=== PATIENT | female | born 1940 | race Caucasian/White ===

== ENCOUNTER 2016-09-25 15:34 | Inpatient (IN) | payer MEDICARE, OTHER ==
[2016-09-25 16:19] LABS: CHLORIDE,CL 98 mEq/L (98-106)
[2016-09-25 16:26] LABS: SODIUM,NA 139 mEq/L (136-145)
--- NOTE | 2016-09-25 16:30 | EDM.PDOC ---
ED HPI GENERAL MEDICAL PROBLEM - General Stated Complaint: PASSED OUT AND HIT HEAD Social & Family History - Tobacco Use Smoking Status *Q: Never Smoker Second Hand Smoke Exposure: No Course - Vital Signs Last Recorded V/S: Last Vital Signs Temp 98.4 F 09/25/16 16:00 Pulse 38 L 09/25/16 16:00 Resp 20 09/25/16 16:00 BP 151/60 H 09/25/16 16:00 Pulse Ox 98 09/25/16 16:00 - Orders/Labs/Meds Orders: Active Orders 24 hr Category Date Time Status Head wo Cont [CT] Stat Exams 09/25/16 15:49 Ordered C-REACTIVE PROTEIN [CHEM] Stat Lab 09/25/16 15:49 Ordered CBC WITH AUTO DIFF [HEME] Stat Lab 09/25/16 15:49 Ordered COMPREHENSIVE METABOLIC PN,CMP [CHEM] Stat Lab 09/25/16 15:49 Ordered CREATINE KINASE,CK [CHEM] Stat Lab 09/25/16 15:49 Ordered TROPONIN I [CHEM] Stat Lab 09/25/16 15:49 Ordered UA W/MICROSCOPIC [URIN] Stat Lab 09/25/16 15:49 Uncollected - My Orders Last 24 Hours: My Active Orders 09/25/16 15:49 Head wo Cont [CT] Stat C-REACTIVE PROTEIN [CHEM] Stat CBC WITH AUTO DIFF [HEME] Stat COMPREHENSIVE METABOLIC PN,CMP [CHEM] Stat CREATINE KINASE,CK [CHEM] Stat TROPONIN I [CHEM] Stat UA W/MICROSCOPIC [URIN] Stat - Assessment/Plan Last 24 Hours: My Active Orders 09/25/16 15:49 Head wo Cont [CT] Stat C-REACTIVE PROTEIN [CHEM] Stat CBC WITH AUTO DIFF [HEME] Stat COMPREHENSIVE METABOLIC PN,CMP [CHEM] Stat CREATINE KINASE,CK [CHEM] Stat TROPONIN I [CHEM] Stat UA W/MICROSCOPIC [URIN] Stat
[2016-09-25] MEDS ORDERED: Potassium Chloride 40 MEQ in Premix Bag 1 BAG IV ONE ×3 (16:37→21:45)
--- NOTE | 2016-09-25 17:07 | EDM.PDOC ---
ED HPI GENERAL MEDICAL PROBLEM - General Chief Complaint: Syncope Stated Complaint: PASSED OUT AND HIT HEAD Time Seen by Provider: 09/25/16 16:25 Source of Information: Reports: Patient History Limitations: Reports: No Limitations - History of Present Illness INITIAL COMMENTS - FREE TEXT/NARRATIVE: Arlin is a 75 yo female who presents to the ER with complaints of dizziness and recent syncopal episode. Family is present and Arlin arrived ambulatory. Family states about 45 minutes before arrival she became very lightheaded and had a 2-3 minute syncopal episode. She was at her granddaughter's house. She states she continues to feel dizzy. Denies any chest pain or palpitations in her chest. Her is present and states this has happened one other time recently while she was sitting in her chair watching TV at home. She admits she is under a lot of stress lately d/t preparing for moving. Reviewed patient's chart with past cardiac history. She saw Dr. Raza back in May of 2015. She has an extensive cardiac history of tachycardia, possible SVT, status post ablation in 2006. Hx of atrial fibrillation on warfarin and amiodarone. CAD, status post stent to LAD in 2009. Hypertension, which she takes Losartan, HCTZ and FUrosemide (peripheral edema). She also has history of dyslipidemia, which she is not taking any statin therapy. She is also on KCl 20 meq daily for history of hypokalemia. Onset: Today Location: Reports: Head Context: Reports: Activity Associated Symptoms: Reports: Headaches, Loss of Appetite, Malaise, Nausea/ Vomiting (nauseated, no vomiting), Syncope, Weakness. Denies: Chest Pain, Cough , Fever/Chills, Seizure, Shortness of Breath - Related Data Allergies Allergy/AdvReac Type Severity Reaction Status Date / Time codeine Allergy Pain Verified 09/25/16 17:01 duloxetine [From Cymbalta] Allergy Headache Verified 09/25/16 17:03 morphine Allergy Pain Verified 09/25/16 17:03 Morpholine Analogues Allergy Pain Verified 09/25/16 17:03 Home Meds: Home Meds ALPRAZolam [Xanax] 0.5 mg PO DAILY PRN 09/25/16 [History] Amiodarone HCl [Pacerone] 200 mg PO DAILY 09/25/16 [History] Aspirin [Halfprin] 81 mg PO DAILY 09/25/16 [History] Furosemide [Lasix] 40 mg PO DAILY 09/25/16 [History] Hydrochlorothiazide 25 mg PO DAILY 09/25/16 [History] Losartan Potassium [Cozaar] 50 mg PO DAILY 09/25/16 [History] Multivitamin [Multivitamins] 1 tab PO DAILY 09/25/16 [History] Potassium Chloride [Klor-Con M20] 20 meq PO DAILY 09/25/16 [History] Warfarin [Coumadin] 1 mg PO DAILY 09/25/16 [History] Zolpidem Tartrate 10 mg PO BEDTIME 09/25/16 [History] Past Medical History Cardiovascular History: Reports: Afib, Arrhythmia, CAD, High Cholesterol, Hypertension, Stents, Syncope Neurological History: Reports: Migraines Psychiatric History: Reports: Anxiety Oncologic (Cancer) History: Reports: Malignant Melanoma - Past Surgical History HEENT Surgical History: Reports: Tonsillectomy Cardiovascular Surgical History: Reports: Coronary Artery Stent GI Surgical History: Reports: Appendectomy, Cholecystectomy Female Surgical History: Reports: Breast Biopsy, Section, Hysterectomy Other Musculoskeletal Surgeries/Procedures:: Leg surgery Social & Family History - Tobacco Use Smoking Status *Q: Never Smoker Second Hand Smoke Exposure: No - Alcohol Use Alcohol Use History: No - Living Situation & Occupation Living situation: Reports: Occupation: Retired ED ROS GENERAL - Review of Systems Review Of Systems: ROS reveals no pertinent complaints other than HPI. Constitutional: Reports: Weakness, Fatigue HEENT: Reports: No Symptoms Cardiovascular: Reports: Lightheadedness, Syncope. Denies: Chest Pain, Dyspnea on Exertion, Orthopnea, Palpitations GI/Abdominal: Reports: Decreased Appetite. Denies: Abdominal Pain : Reports: No Symptoms Musculoskeletal: Reports: No Symptoms Skin: Reports: No Symptoms Neurological: Reports: Dizziness, Headache, Syncope - Physical Exam Exam: See Below Exam Limited By: No Limitations General Appearance: Alert, No Apparent Distress, Anxious Eye Exam: Bilateral Eye: EOMI, PERRL Ears: Normal External Exam, Normal Canal, Hearing Grossly Normal, Normal TMs Nose: Normal Inspection, Normal Mucosa, No Blood Throat/Mouth: Normal Inspection, Normal Lips, Normal Teeth, Normal Gums, Normal Oropharynx, Normal Voice, No Airway Compromise Head Exam: Scalp Abrasions (right parietal) Neck: Normal Inspection, Supple, Non-Tender, Full Range of Motion Respiratory/Chest: No Respiratory Distress, Lungs Clear, Normal Breath Sounds, No Accessory Muscle Use Cardiovascular: Bradycardia, Systolic Murmur, Other (PVC's) GI/Abdominal: Normal Bowel Sounds, Soft, Non-Tender, No Organomegaly, No Distention, No Mass Neuro Exam (Abbreviated): Alert, Oriented, Normal Cognition, No Motor/Sensory Deficits Extremities: Normal Inspection, No Pedal Edema, Normal Capillary Refill Psychiatric: Anxious Skin Exam: Warm, Dry, Intact, Normal Color, No Rash EKG INTERPRETATION EKG Date: 09/25/16 Rhythm: other (frequent PVC's.) Rate (beats/min): 68 ST-T: depressed (inferolateral leads) Comparison: change from previous EKG Course - Vital Signs Last Recorded V/S: Last Vital Signs Temp 98.4 F 09/25/16 16:00 Pulse 38 L 09/25/16 16:00 Resp 20 09/25/16 16:00 BP 151/60 H 09/25/16 16:00 Pulse Ox 98 09/25/16 16:00 - Orders/Labs/Meds Orders: Active Orders 24 hr Category Date Time Status Patient Status Manage Transfer [TRANSFER] Routine ADT 09/25/16 17:13 Ordered Head wo Cont [CT] Stat Exams 09/25/16 15:49 Taken Resuscitation Status Routine Resus Stat 09/25/16 17:14 Ordered Medication Orders Potassium Chloride 40 meq/ (Premix) 100 mls @ 25 mls/hr IV ONETIME ONE Stop: 09/25/16 21:44 Sodium Chloride (Normal Saline) 250 mls @ 62.5 mls/hr IV ONETIME ONE Stop: 09/25/16 21:44 Potassium Chloride 40 meq/ (Premix) 100 mls @ 10 mls/hr IV ONETIME ONE Stop: 09/26/16 07:44 Sodium Chloride (Normal Saline) 500 mls @ 50 mls/hr IV ONETIME ONE Stop: 09/26/16 07:44 Labs: Laboratory Tests 09/25/16 09/25/16 09/25/16 Range/Units 15:49 16:00 16:27 WBC 8.6 (5.0-10.0) 10^3/uL RBC 4.29 (4.00-5.50) 10^6/uL Hgb 13.8 (12.0-16.0) g/dL Hct 41.6 (37.0-47.0) % MCV 97.0 H (82.0-94.0) fL MCH 32.2 H (27.0-32.0) pg MCHC 33.2 (33.0-38.0) g/dL RDW Coeff of Stephanie 13.1 (11.0-15.0) % Plt Count 282 (150-400) 10^3/uL Neut % (Auto) 62.4 (35-85) % Lymph % (Auto) 29.7 (10-55) % [place] % (Auto) 7.3 (0-16) % Eos % (Auto) 0.4 (0-5) % Baso % (Auto) 0.2 (0-3) % Neut # (Auto) 5.34 (1.80-7.00) 10^3/uL Lymph # (Auto) 2.54 (1.00-4.80) 10^3/uL [place] # (Auto) 0.62 (0.00-0.80) 10^3/uL Eos # (Auto) 0.03 (0.00-0.45) 10^3/uL Baso # (Auto) 0.02 10^3/uL PT (9.7-12.3) SEC INR (0.92-1.18) Sodium 139 (136-145) mEq/L Potassium 2.6 L* D (3.5-5.0) mEq/L Chloride 98 (98-106) mEq/L Carbon Dioxide 30 (21-32) mmol/L BUN 39 H D (7-18) mg/dL Creatinine 2.2 H D (0.6-1.0) mg/dL Est Cr Clr Drug Dosing TNP Estimated GFR (MDRD) 22 L (>=60) mL/min Glucose 135 H D (75-99) mg/dL Calcium 9.4 (8.4-10.1) mg/dL Magnesium (1.8-2.4) mg/dL Total Bilirubin 0.6 (0.0-1.0) mg/dL AST 24 (15-37) U/L ALT 25 (12-78) U/L Alkaline Phosphatase 99 (46-116) U/L Creatine Kinase 172 (21-215) U/L Troponin I < 0.017 (0.00-0.06) ng/mL C-Reactive Protein < 0.2 L (0.2-0.8) mg/dL Total Protein 8.4 H (6.4-8.2) g/dL Albumin 4.4 (3.4-5.0) g/dL Urine Color Yellow (YELLOW) Urine Appearance Clear (CLEAR) Urine pH 7.0 (4.5-8.0) Ur Specific [place] 1.008 (1.003-1.020) Urine Protein Negative (NEGATIVE) mg/dL Urine Glucose (UA) Negative (NEGATIVE) mg/dL Urine Ketones Negative (NEGATIVE) mg/dL Urine Occult Blood Negative (NEGATIVE) Urine Nitrite Negative (NEGATIVE) Urine Bilirubin Negative (NEGATIVE) Urine Urobilinogen 0.2 (0.2-1.0) EU/dL Ur Leukocyte Esterase Trace H (NEGATIVE) Urine RBC Not seen (0-5) /HPF Urine WBC 0-5 (0-5) /HPF Ur Squamous Epith Cells Occasional H (NOT SEEN) /HPF 09/25/16 09/25/16 Range/Units 16:40 17:10 WBC (5.0-10.0) 10^3/uL RBC (4.00-5.50) 10^6/uL Hgb (12.0-16.0) g/dL Hct (37.0-47.0) % MCV (82.0-94.0) fL MCH (27.0-32.0) pg MCHC (33.0-38.0) g/dL RDW Coeff of Stephanie (11.0-15.0) % Plt Count (150-400) 10^3/uL Neut % (Auto) (35-85) % Lymph % (Auto) (10-55) % [place] % (Auto) (0-16) % Eos % (Auto) (0-5) % Baso % (Auto) (0-3) % Neut # (Auto) (1.80-7.00) 10^3/uL Lymph # (Auto) (1.00-4.80) 10^3/uL [place] # (Auto) (0.00-0.80) 10^3/uL Eos # (Auto) (0.00-0.45) 10^3/uL Baso # (Auto) 10^3/uL PT 19.3 H (9.7-12.3) SEC INR 1.76 H (0.92-1.18) Sodium (136-145) mEq/L Potassium (3.5-5.0) mEq/L Chloride (98-106) mEq/L Carbon Dioxide (21-32) mmol/L BUN (7-18) mg/dL Creatinine (0.6-1.0) mg/dL Est Cr Clr Drug Dosing Estimated GFR (MDRD) (>=60) mL/min Glucose (75-99) mg/dL Calcium (8.4-10.1) mg/dL Magnesium 2.3 (1.8-2.4) mg/dL Total Bilirubin (0.0-1.0) mg/dL AST (15-37) U/L ALT (12-78) U/L Alkaline Phosphatase (46-116) U/L Creatine Kinase (21-215) U/L Troponin I (0.00-0.06) ng/mL C-Reactive Protein (0.2-0.8) mg/dL Total Protein (6.4-8.2) g/dL Albumin (3.4-5.0) g/dL Urine Color (YELLOW) Urine Appearance (CLEAR) Urine pH (4.5-8.0) Ur Specific [place] (1.003-1.020) Urine Protein (NEGATIVE) mg/dL Urine Glucose (UA) (NEGATIVE) mg/dL Urine Ketones (NEGATIVE) mg/dL Urine Occult Blood (NEGATIVE) Urine Nitrite (NEGATIVE) Urine Bilirubin (NEGATIVE) Urine Urobilinogen (0.2-1.0) EU/dL Ur Leukocyte Esterase (NEGATIVE) Urine RBC (0-5) /HPF Urine WBC (0-5) /HPF Ur Squamous Epith Cells (NOT SEEN) /HPF Meds: Medications Generic Name Dose Route Start Last Admin Trade Name Freq PRN Reason Stop Dose Admin Potassium Chloride 40 meq/ 100 mls @ 25 mls/hr 09/25/16 17:45 Premix IV 09/25/16 21:44 ONETIME ONE Sodium Chloride 250 mls @ 62.5 mls/hr 09/25/16 17:45 Normal Saline IV 09/25/16 21:44 ONETIME ONE Potassium Chloride 40 meq/ 100 mls @ 10 mls/hr 09/25/16 21:45 Premix IV 09/26/16 07:44 ONETIME ONE Sodium Chloride 500 mls @ 50 mls/hr 09/25/16 21:45 Normal Saline IV 09/26/16 07:44 ONETIME ONE Discontinued Medications Generic Name Dose Route Start Last Admin Trade Name Lazaro PRN Reason Stop Dose Admin Potassium Chloride 40 meq/ 100 mls @ 25 mls/hr 09/25/16 16:37 Premix IV 09/25/16 20:36 ONETIME ONE Departure - Departure Time of Disposition: 17:30 Disposition: Admitted As Inpatient 67 Clinical Impression: Hypokalemia Syncope Qualifiers: Syncope type: unspecified Qualified Code(s): R55 - Syncope and collapse - Discharge Information - Problem List & Annotations (1) Hypokalemia SNOMED Code(s): 83819085 Code(s): E87.6 - HYPOKALEMIA Status: Acute Current Visit: Yes (2) Syncope SNOMED Code(s): 454423603 Code(s): R55 - SYNCOPE AND COLLAPSE Status: Acute Current Visit: Yes Qualifiers: Syncope type: unspecified Qualified Code(s): R55 - Syncope and collapse - Problem List Review Problem List Initiated/Reviewed/Updated: Yes - My Orders Last 24 Hours: My Active Orders 09/25/16 15:49 Head wo Cont [CT] Stat 09/25/16 17:13 Patient Status Manage Transfer [TRANSFER] Routine 09/25/16 17:14 Resuscitation Status Routine - Assessment/Plan Admission H&P: Please use this note as an admission H&P Last 24 Hours: My Active Orders 09/25/16 15:49 Head wo Cont [CT] Stat 09/25/16 17:13 Patient Status Manage Transfer [TRANSFER] Routine 09/25/16 17:14 Resuscitation Status Routine Plan: Laboratory work showed potassium to be 2.6. IV access initiated with 10 mEq of KCL per hour X 4 hours. Consulted with Juan to review EKG and Dr. Reyes advised following up with cardiology. Dr. De La Cruz. Dr. De La Cruz did not feel she was having an active AK and EKG findings were secondary to her potassium. Consulted with Dr. Jimenez in regards to Arlin's condition and he agreed with admission. Further instructions were given for treatment. We will closely monitor via telemetry as well thru the night. Dr. Jimenez will see her in the morning. Advised to hold her HCTZ with an elevated creatinine as well. Discussed treatment plan with Arlin and her family, which they all verbalized understanding.
[2016-09-25] MEDS ORDERED: POTASSIUM CHLORIDE IV ONE ×3 (17:27)
[2016-09-25] MEDS ORDERED: SODIUM CHLORIDE 0.9% IV ONE ×3 (17:27)
[2016-09-25] MEDS ORDERED: Sodium Chloride 0.9% 250 ML IV ONE (17:45)
[2016-09-25] MEDS ORDERED: Acetaminophen 325 MG Tab PO PRN (18:11)
[2016-09-25] MEDS ORDERED: Docusate Sodium 100 MG Cap PO PRN (18:11)
[2016-09-25] MEDS ORDERED: Enoxaparin 30 MG/0.3 ML Syringe SUBCUT SCH (19:00)
[2016-09-25] MEDS ORDERED: Zolpidem 5 MG Tab PO SCH (20:00)
[2016-09-25] MEDS: ALPRAZolam 0.25 MG Tab PO PRN (20:45)
[2016-09-25] MEDS ORDERED: Sodium Chloride 0.9% 500 ML IV ONE (21:45)
[2016-09-26 07:21] VITALS: BP 139/56
[2016-09-26] MEDS ORDERED: Amiodarone 200 MG Tab PO SCH (08:00)
[2016-09-26] MEDS ORDERED: Losartan 25 MG Tab PO SCH (08:00)
[2016-09-26] MEDS ORDERED: Furosemide 40 MG Tab PO SCH (08:00)
[2016-09-26] MEDS ORDERED: Aspirin 81 MG Tab.EC PO SCH (08:00)
[2016-09-26] MEDS: ALPRAZolam 0.25 MG Tab PO PRN (11:26)
--- NOTE | 2016-09-27 08:42 | DISCH ---
CONSULTING PHYSICIANS: Dr. Magalie Akins and Dr. De La Cruz, dictating transcribing machine servicer yesterday evening. FINAL DIAGNOSES: 1. Marked sinus bradycardia. 2. Hypokalemia, resolved. PROCEDURES: EKG this morning shows a marked sinus bradycardia, 41 beats per minute. EKG yesterday did show frequent PVCs with some ST depression in the inferolateral leads. HISTORY OF PRESENT ILLNESS: Arlin is a 75-year-old female, who was brought into the ER yesterday with complaints of dizziness and syncopal episode. She came very light-headed and had a 2-3 minutes syncopal episode at her granddaughter's house. She continues to be dizzy when she arrived to the emergency room. Laboratory data did confirm hypokalemia with EKG with the frequent PVCs and ST depression. LABORATORY DATA: CBC was grossly unremarkable. INR is 1.76 with a PT of 19.3, potassium was 2.6 yesterday with the correction of 3.9 today. Creatinine was 2.2 yesterday evening and is currently 1.7 this morning. CRP was less than 0.2. CK troponin within normal limits. LFTs within normal limits. ProBNP of 396, urinalysis was grossly unremarkable, but there is some mild trace of leukocyte esterase. CT of the head was negative per radiologist at [facility]. No acute findings. HOSPITAL COURSE: Arlin has had any uneventful hospital stay for the most part. She has been at rest for the most part, lying in her bed, did not really appear to be in any distress. She states that she continues to have lightheadedness with fall and ambulating. She has had some assistance with going to the bathroom etc. She denies any chest pain this morning, states that she otherwise has been asymptomatic. DISCHARGE MEDICATIONS: Continue all current medications. She is not on any beta blocking agents. DISCHARGE INSTRUCTIONS: She will be ALS transfer to [facility] with accepting physician is Dr. Magalie Akins for possible cardiac workup in regard to pacemaker placement. Discharge instructions as above. EDOUARD/REYNALDO /[id number]
== END 2016-09-26 11:35 | DRG 641 ==
LOC: CC.ED 15:34 → CC.MS 17:13 → UNDOADMIN 17:19 → CC.MS 18:11 → UNDODISIN 09-26 11:35
PROVIDERS: ADMIT Physician Assistant Medical; ATTEND Family Medicine
DX: E87.6 Hypokalemia (principal); R55 Syncope and collapse; R00.1 Bradycardia, unspecified; I48.91 Unspecified atrial fibrillation; Z79.01 Long term (current) use of anticoagulants; I10 Essential (primary) hypertension; I47.1 Supraventricular tachycardia; R51 Headache; R63.0 Anorexia; R53.81 Other malaise; E78.5 Hyperlipidemia, unspecified; Z79.82 Long term (current) use of aspirin; F41.9 Anxiety disorder, unspecified; I25.10 Atherosclerotic heart disease of native coronary artery without angina pectoris
CPT/HCPCS: 36415; 70450; 80048; 80053; 81001; 82550; 83735; 83880; 84484; 85025; 85610; 86140; 93005; 93010; 99285; A9270-GY; J1650; J3480; J7040; J7050